=== PATIENT | female | born 1965 | race Caucasian/White ===

== ENCOUNTER 2018-12-01 22:45 | Emergency (ER) | payer SELFPAY ==
[~2018-12-01] VITALS: Ht 167.6 cm; Wt 68.0 kg
[2018-12-01 22:45] VITALS: BP 130/81
--- NOTE | 2018-12-01 22:50 | NUR ---
PT TRIAGED AND BROUGHT TO [facility]
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
[2018-12-01 23:19] VITALS: BP 134/75
--- NOTE | 2018-12-01 23:19 | NUR ---
Patient discharged with v/s stable. Written and verbal after care instructions given and explained. Patient verbalized understanding. Ambulatory with steady gait. All questions addressed prior to discharge. Advised to follow up with PMD. DONNY TO BOOK BY [facility]MD. [place].
== END 2018-12-01 23:19 ==
LOC: MED 22:45
DX: Z02.89 Encounter for other administrative examinations (principal)
CPT/HCPCS: 99283